=== PATIENT | female | born 1980 | race Caucasian/White ===

== ENCOUNTER 2025-08-21 23:42 | Emergency (ER) | payer SELFPAY ==
[~2025-08-21] VITALS: Ht 172.7 cm; Wt 78.0 kg
[2025-08-21 23:52] VITALS: O2SAT 100
[2025-08-22] MEDS: KETOROLAC 30MG/ML VIAL IM ONE (00:37)
[2025-08-22] MEDS ORDERED: NAPR220C61 MT (00:45)
[2025-08-22] MEDS ORDERED: AMOX1TAB16 MT (00:45)
[2025-08-22 01:09] VITALS: BP 163/92; PULSE 85; RESP 24; TEMP 36.7; O2SAT 98
[2025-08-22] MEDS: BACITRACIN ZINC OINT UDPKT TOP ONE (01:11)
== END 2025-08-22 01:25 | disposition home or self-care (01) ==
LOC: ER 23:42
DX: S41.152A Open bite of left upper arm, initial encounter (principal); G89.11 Acute pain due to trauma; W54.0XXA Bitten by dog, initial encounter; Y93.89 Activity, other specified; Y92.89 Other specified places as the place of occurrence of the external cause; Y99.8 Other external cause status
CPT/HCPCS: 99284; 73090; 73110; 73562; 29125; 96372; J1885; A6449; A4606